=== PATIENT | female | born 1985 | race Caucasian/White ===

== ENCOUNTER 2021-03-13 17:11 | Emergency (ER) | payer OTHER ==
[~2021-03-13 17:11] MED LIST: BENTYL10 MG PO; IMODIUM2 MG PO; ZOFRAN ODT4 MG PO/SL
[2021-03-13] MEDS ORDERED: CEPHALEXIN500 MG PO (18:23)
== END 2021-03-13 18:44 | disposition home or self-care (01) ==
LOC: FER 17:11
DX: S61.211A Laceration without foreign body of left index finger without damage to nail, initial encounter (principal); I10 Essential (primary) hypertension; W45.8XXA Other foreign body or object entering through skin, initial encounter; Y92.009 Unspecified place in unspecified non-institutional (private) residence as the place of occurrence of the external cause

== ENCOUNTER 2022-05-13 21:09 | Emergency (ER) | payer OTHER ==
[~2022-05-13 21:09] MED LIST changes: +CEPHALEXIN500 MG PO
[2022-05-13 21:46] LABS: BASOPHIL 0.2 % (0-2); EOSINOPHIL 1.5 % (0-5); HCT 39.6 % (37.0-47.0); HGB 13.1 g/dl (12.5-16.0); LYMPHOCYTE 26.3 % (15-48); MCH 28.1 pg (25.0-31.0); MCHC 33.1 g/dL (32.0-36.0); MCV 84.8 fL (78.0-100.0); MONOCYTE 7.8 % (0-12); NEUTROPHIL 63.8 % (41-80); NRBC 0; PLT 214 K/uL (150-400); RBC 4.67 M/uL (4.20-5.40); WBC 8.2 K/uL (4.0-10.5)
[2022-05-13 22:04] LABS: ALBUMIN 3.7 g/dL (3.4-5.0); BILIRUBIN - TOTAL 1.1 mg/dL (0.2-1.0); BUN/CREAT RATIO (CALC) 8.3 RATIO; CREATININE 0.84 mg/dL (0.51-0.95); GLOBULIN (CALCULATION) 3.4 g/dL; POTASSIUM 3.2 mmol/L (3.5-5.1); TOTAL PROTEIN 7.1 g/dL (6.4-8.2)
[2022-05-13 22:08] LABS: CORONAVIRUS 2019 SARS-COV-2 NEGATIVE (NEGATIVE); INFLUENZA A NAA NEGATIVE (NEGATIVE)
[2022-05-14] MEDS ORDERED: PHENERGAN25 M1 PO (00:19)
[2022-05-14] MEDS ORDERED: ONDANSETRON ODT4 MG PO (00:19)
== END 2022-05-14 00:25 | disposition home or self-care (01) ==
LOC: FER 21:09
PROVIDERS: Emergency Medicine
DX: K92.0 Hematemesis (principal); I10 Essential (primary) hypertension; F17.200 Nicotine dependence, unspecified, uncomplicated; Z20.822 Contact with and (suspected) exposure to COVID-19; Z79.899 Other long term (current) drug therapy
CPT/HCPCS: 36415; 80053; 83690; 84703; 85025; J1885; J2405; J7030; U0002